=== PATIENT | male | born 1955 | race Caucasian/White ===

== ENCOUNTER 2016-08-24 17:02 | Emergency (ER) | payer MEDICARE, OTHER ==
[~2016-08-24] VITALS: Ht 172.7 cm; Wt 112.5 kg
[~2016-08-24 17:02] MED LIST: ALLO300T46; AMLO-218; ASPI-664; BENA40TA54; CIPR500T4 PO; HYDR25TA6; IBUP-1542 PO; METF500T4; METO-429; PHEN-537 PO; POTA10TA6; [UNRECOGNIZED DRUG - CODE]
[2016-08-24 17:04] VITALS: Ht 172.7 cm; Wt 112.5 kg
[2016-08-24] MEDS ORDERED: SOD CHLORIDE 0.9% 500 ML IV STA (18:55)
--- NOTE | 2016-08-24 19:05 | RADRPT ---
PROCEDURE: XR Chest. CLINICAL INDICATION: Cough. Clinical concern for infiltrate TECHNIQUE: Portable AP upright view of the chest was obtained. COMPARISON: 03/13/2015 FINDINGS: The cardiomediastinal silhouette is within normal limits. The lungs are clear. There is no evidenc e for pleural effusion, pneumothorax or pulmonary vascular congestion. Degenerative spondylosis of the thoracic spine is again noted. There is no evidence of acute osseous abnormality. Vertically or iented shunt tubing overlying the right chest is again seen RPTAT:HJJR IMPRESSION: No evidence for acute intrathoracic pathology or interval change 03/13/2015. Physician Abhi Date Time Electronically viewed and signed by Physician Abhi on 08/24/2016 19:04 /
[2016-08-24] MEDS ORDERED: ALBU8.5H3 INH (19:09)
[2016-08-24 19:19] VITALS: BP 123/66; RESP 18
--- NOTE | 2016-08-25 00:49 | ERD ---
ER Documentation Chief Complaint Date/Time DATE: 08/25/16 TIME: 00:46 Chief Complaint SENT BY PMD FOR CHEST X RAY , COUGH X 1 MONTH HPI 61-year-old man here for chest x-ray, PMD ordered a chest x-ray for cough 1 month. Patient denies weight loss, no hemoptysis, no calf or leg swelling, no nocturnal fevers or diaphoresis, no complaints of chest pain. Patient denies any new medication use. ROS All systems reviewed and are negative except as per history of present illness. Medications Home Meds Active Scripts Albuterol Sulfate* (Proair HFA*) 8.5 Gm Hfa.aer.ad, 2 PUFF INH Q6H Y for WHEEZING AND SOB, #1 INHALER Prov:AGAPITO ZARATE MD 08/24/16 Phenazopyridine Hcl* (Pyridium*) 100 Mg Tab, 100 MG PO TID Y for DYSURIA, #4 TAB Prov:DOUGLAS HOROWITZ NP 07/11/15 Ciprofloxacin Hcl* (Ciprofloxacin Hcl*) 500 Mg Tablet, 500 MG PO BID for 7 Days , TAB Prov:DOUGLAS HOROWITZ NP 07/11/15 Ibuprofen* (Motrin*) 600 Mg Tab, 600 MG PO Q6H Y for PAIN AND OR ELEVATED TEMP, #30 Prov:MEI BOYD NP 12/21/14 Reported Medications Potassium Citrate* (Urocit-K*) 10 Meq Tablet.sa 01/20/10 Hydrochlorothiazide (Hydrochlorothiazide) 25 Mg Tablet 01/20/10 Allopurinol* (Zyloprim*) 300 Mg Tablet 01/20/10 Metformin* (Glucophage*) 500 Mg Tab 01/20/10 Glyburide* (Micronase*) 5 Mg Tablet 01/20/10 Aspirin* (Aspirin* EC) 81 Mg Tablet. 01/20/10 Benazepril Hcl* (Lotensin*) 40 Mg Tablet 01/20/10 Metoprolol Tartrate* (Lopressor*) 50 Mg Tablet 01/20/10 Amlodipine Besylate* (Norvasc*) 10 Mg Tablet 01/20/10 Allergies Allergies: Coded Allergies: No Known Drug Allergies (Verified Allergy, Mild, 01/20/10) PMhx/Soc Hypertension, diabetes mellitus, arthritis Medical and Surgical Hx: pt denies Medical Hx, pt denies Surgical Hx History of Surgery: Yes (BRAIN SURGERY SHUNT PLACED, TRACHEOSTOMY) Anesthesia Reaction: No Hx Neurological Disorder: Yes (CVA R SIDE BODY WEAKNESS 2006) Hx Respiratory Disorders: No Hx Cardiac Disorders: Yes (HTN, HDL) Hx Psychiatric Problems: No Hx Miscellaneous Medical Probl: Yes (DM) Hx Alcohol Use: No Hx Substance Use: No Hx Tobacco Use: No Smoking Status: Never smoker FmHx Family History: No diabetes Physical Exam Vitals Vital Signs Date Time Temp Pulse Resp B/P Pulse Ox O2 Delivery O2 Flow Rate FiO2 08/24/16 19:19 18 123/66 96 08/24/16 17:04 99.1 85 18 123/66 96 Physical Exam GENERAL: Well-developed, well-nourished, well-hydrated, in no apparent distress , looks nontoxic in appearance HEENT: Moist mucous membranes, pink conjunctiva, no cervical spine tenderness or step-off deformities, no goiter, no jaundice or icterus, extraocular movements intact without pain. No submandibular induration, and no pharyngeal erythema NEURO: Alert and oriented 3, cranial nerves II through XII intact bilaterally, pupils equal round reactive to light, no focal deficits or facial asymmetry, sensation intact distally Strength 5/5 in upper and lower extremities bilaterally CARDIAC: Regular rate and rhythm, no murmurs rubs or gallops LUNGS: Clear bilaterally no wheezing crackles or stridor ABDOMEN: Soft nontender, no guarding, no rigidity, no rebound, no psoas sign no obturator sign. Normoactive bowel sounds SKIN: Warm and dry to touch, no abrasions, contusions, or hematomas, no lacerations, no ecchymosis, no target lesions, and without ulcers EXTREMITIES: No clubbing cyanosis or edema, calves are bilaterally symmetrical, no Homans sign, no popliteal cord sign. Distal pulses equal and bilateral PSYCH: Normal affect without agitation or irritability Results 24 hrs Current Medications Medications (Trade) Dose Ordered Sig/[place] PRN Reason Start Time Stop Time Status Last Admin Dose Admin Sodium Chloride (NS) 500 ml @ 500 mls/hr Q1H STAT IV 08/24/16 18:55 08/24/16 19:08 DC Procedures/MDM One AP view of the chest performed, read by me reveals no acute infiltrates, normal mediastinum, sharp costophrenic and cardiac borders, no air under the diaphragm. Otherwise unremarkable chest x-ray. Patient is asymptomatic at this time and had no episodes of coughing while here in the ED although he has had one month of cough, further imaging and management and consultations to be performed as an outpatient and coordinated with his PMD. Differential diagnoses considered, included but not limited to acute coronary syndrome, pulmonary embolism, aortic dissection, abdominal aortic aneurysm, sepsis, stroke, meningitis, encephalitis, pneumonia, appendicitis, cholecystitis , bowel obstruction, pyelonephritis, nephrolithiasis, cystitis, as well as metabolic, hematologic, and electrolyte abnormalities. As well as abscess, cellulitis, fractures, and dislocations. Patient feels much better at this time, and vital signs are normal, symptoms have improved. I did give strict instructions to return to the ED if symptoms continue or worsen, patient will otherwise follow-up with primary care physician. Patient understood instructions and agreed to plan. Departure Diagnosis: Primary Impression: Cough Condition: Good Patient Instructions: Cough, Chronic, Uncertain Cause, (Adult) AGAPITO ZARATE MD August 25, 2016 00:49
== END 2016-08-24 19:20 | disposition home or self-care (01) ==
LOC: FTE 17:02
DX: R05 Cough (principal); I10 Essential (primary) hypertension; E11.9 Type 2 diabetes mellitus without complications; Z79.82 Long term (current) use of aspirin; Z79.84 Long term (current) use of oral hypoglycemic drugs
CPT/HCPCS: 71010; J7040

== ENCOUNTER 2018-01-06 21:53 | Emergency (ER) | END 2018-01-07 02:12 | disposition home or self-care (01) ==

== ENCOUNTER → 2018-02-02 | Outpatient (CLI) | END | disposition home or self-care (01) ==

== ENCOUNTER 2018-09-19 08:54 | Day surgery (SDC) | payer MEDICARE, OTHER ==
[2018-09-17 18:30] VITALS: Ht 175.3 cm; Wt 103.7 kg
[2018-09-19] VITALS (23 sets, daily range): BP systolic 102–147; BP diastolic 62–76; PULSE 66–74; RESP 14–23
[~2018-09-19] VITALS: Ht 175.3 cm; Wt 103.7 kg
[~2018-09-19 08:54] MED LIST changes: +ALBU8.5H8 INH; -ALLO300T46; +ALLO300T84; -ASPI-664; +ASPI-817; +CIPROFLOXACIN 400MG/D5W 200 ML IVPB ONE; +DESFLURANE 15 MIN ONE; +METF-849; -METF500T4; +PHEN-538 PO
--- NOTE | 2018-09-19 10:36 | PREAC ---
Date/Time of Note Date/Time of Note DATE: 09/19/18 TIME: 10:32 Anesthesia Eval and Record Evaluation Time Pre-Procedure Interview DATE: 09/19/18 TIME: 10:32 Age 63 Sex male NPO: 8 hrs Preoperative diagnosis Bladder Stone Planned procedure Cystoscopy, Removal of stone Past Medical History Past Medical History: Includes Cardio: HTN Endo: Diabetes Neuro: Other (R. Hemiparesis) Renal: Other (Kidney Stone) Surgery & Anesthesia Issues No known issue Meds Anticoagulation: No Beta Danica within 24 hr: Yes Active Scripts Phenazopyridine Hcl* (Pyridium*) 200 Mg Tab, 200 MG PO TID PRN for URINARY PAIN, #6 TAB Prov:JIM BENÍTEZ 01/07/18 Albuterol Sulfate* (Proair HFA*) 8.5 Gm Hfa.aer.ad, 2 PUFF INH Q6H PRN for WHEEZING AND SOB, #1 INHALER Prov:AGAPITO ZARATE MD 08/24/16 Phenazopyridine Hcl* (Pyridium*) 100 Mg Tab, 100 MG PO TID PRN for DYSURIA, #4 TAB Prov:DOUGLAS HOROWITZ NP 07/11/15 Ciprofloxacin Hcl* (Ciprofloxacin Hcl*) 500 Mg Tablet, 500 MG PO BID for 7 Days, TAB Prov:DOUGLAS HOROWITZ IT ENGINEER 07/11/15 Ibuprofen* (Motrin*) 600 Mg Tab, 600 MG PO Q6H PRN for PAIN AND OR ELEVATED TEMP, #30 Prov:MEI BOYD NP 12/21/14 Reported Medications Potassium Citrate* (Urocit-K*) 10 Meq Tablet.sa 01/20/10 Hydrochlorothiazide (Hydrochlorothiazide) 25 Mg Tablet 01/20/10 Allopurinol* (Zyloprim*) 300 Mg Tablet 01/20/10 Metformin* (Glucophage*) 500 Mg Tab 01/20/10 Glyburide* (Micronase*) 5 Mg Tablet 01/20/10 Aspirin* (Aspirin* EC) 81 Mg Tablet. 01/20/10 Benazepril Hcl* (Lotensin*) 40 Mg Tablet 01/20/10 Metoprolol Tartrate* (Lopressor*) 50 Mg Tablet 01/20/10 Amlodipine Besylate* (Norvasc*) 10 Mg Tablet 01/20/10 Meds reviewed: Yes Allergies Coded Allergies: No Known Drug Allergies (Verified Allergy, Mild, 01/20/10) Allergies Reviewed: Yes Labs/Studies Labs Reviewed: Reviewed by anesthesiologist Result Diagram: 09/17/18 1223 09/17/18 1223 test: N/A Pre-procedure Exam Last vitals Vital Signs Date Temp Pulse Resp B/P (MAP) Pulse Ox O2 O2 Flow FiO2 Time Delivery Rate 09/19/18 99.3 15 102/76 93 Room Air 09:00 (85) Airway: Adequate mouth opening Mallampati: Mallampati III Teeth: Normal Lung: Normal Heart: Normal ASA Physical Status ASA physical status: 3 Emergency: None Planned Anesthetic General/MAC: LMA Pre-operative Attestations Prior to commencing anesthesia and surgery, the patient was re-evaluated, there was verification of: *The patient's identity *The results of appropriate recent lab work and preoperative vital signs *The above evaluation not changing prior to induction *Anesthetic plan, risk benefits, alternative and complications discussed with patient/family; questions answered; patient/family understands, accepts and wishes to proceed. NEIL OROSCO MD Sep 19, 2018 10:35
[2018-09-19] MEDS ORDERED: PROPOFOL 20 ML ONE (10:46)
[2018-09-19] MEDS ORDERED: MIDAZOLAM 1 MG/ML 2 ML INJ ONE (10:47)
[2018-09-19] MEDS ORDERED: HYDROmorphONE 1 MG/5 ML IV SYRINGE IV PRN (11:30)
[2018-09-19] MEDS ORDERED: ONDANSETRON 4 MG INJ IV PRN (11:30)
[2018-09-19] MEDS ORDERED: OXYCODONE/ACETAMINOPHEN (5/325) TAB PO PRN (11:30)
[2018-09-19] MEDS ORDERED: FENTAnyl 50 MCG/ML VIAL IV PRN (11:30)
--- NOTE | 2018-09-19 11:39 | PAC ---
Date/Time of Note Date/Time of Note DATE: 09/19/18 TIME: 11:38 Post-Anesthesia Notes Post-Anesthesia Note Last documented vital signs Vital Signs Date Temp Pulse Resp B/P (MAP) Pulse Ox O2 O2 Flow FiO2 Time Delivery Rate 09/19/18 99.3 15 102/76 93 Room Air 09:00 (85) Activity: WNL Respiratory function: WNL Cardiovascular function: WNL Mental status: Baseline Pain reasonably controlled: Yes Hydration appropriate: Yes Nausea/Vomiting absent: Yes NEIL OROSCO MD Sep 19, 2018 11:39
--- NOTE | 2018-09-19 11:47 | OPR ---
Date/Time of Note Date/Time of Note DATE: 09/19/18 TIME: 11:43 Operative Report Procedure Date: Sep 19, 2018 Preoperative Diagnosis Bladder stone Postoperative Diagnosis Same Operation/Procedure Performed Cystoscopy and removal of bladder stone after breaking it with holmium laser Surgeon see signature line Purchasing Department Clerk explosive technician Denise Anesthesia Type: general Anesthesiologist: NEIL OROSCO MD Estimated Blood Loss: none Transfusion none Specimen Fragments of bladder stone and urine culture Grafts/Implants none Complications none Pt Condition Post Procedure: stable Disposition: PACU Indications Bladder stone and hematuria Procedure Description Patient was brought to the operating room and positioned in the supine position. He was given general anesthesia. He received 400 mg of Cipro IV at the start of the procedure. He was then positioned in the lithotomy position and the genital area was prepped and draped in the usual sterile manner. Timeout was done and the patient was identified by his name, birthdate, and the procedure. #22 [place] cystoscope sheath was then introduced under direct vision through the penile urethra all the way to the bladder. The stone was visualized. Then using the 500 m laser fiber the stone was then broken into multiple pieces and these pieces were irrigated out of the bladder. The bladder was intact there was no bleeding. The bladder was emptied and the patient was transferred to recovery room in a stable and satisfactory condition. JOANN COLIN MD Sep 19, 2018 11:47
[2018-09-19] MEDS ORDERED: HYDROCODONE/APAP (5/325) TAB PO PRN (12:00)
== END 2018-09-19 14:12 | disposition home or self-care (01) ==
LOC: SDS 08:54
PROVIDERS: ATTEND Urology
DX: N21.0 Calculus in bladder (principal); I10 Essential (primary) hypertension; E11.9 Type 2 diabetes mellitus without complications
CPT/HCPCS: 52317; 71046; 80048; 81001; 82962; 85025; 85610; 85730; 87086; 88300; 93005; J0744; J2250; J3010